=== PATIENT | female | born 1950 | race Caucasian/White ===

== ENCOUNTER 2016-08-30 09:50 | Day surgery (SDC) | payer BC ==
[2016-08-30] MEDS ORDERED: PROPOFOL 10 MG/ML VIAL IV ONE (14:00)
[2016-08-30] MEDS ORDERED: LIDOCAINE 2% MDV (20MG/ML) 20ML VIAL IV ONE ×2 (14:00→15:16)
[2016-08-30] MEDS ORDERED: PHENYLEPHRINE HCL 2.5% OPTH 2ML BTL OP ONE (15:16)
[2016-08-30] MEDS ORDERED: DICLOFENAC SODIUM 2.5 ML DROPS OPTH ONE (15:16)
[2016-08-30] MEDS ORDERED: EPINEPHRINE 1 MG/ML AMPUL SQ ONE (15:16)
[2016-08-30] MEDS ORDERED: TOBRAMYCIN 0.3% OPTH DROP 5 ML BTL OPTH ONE (15:16)
[2016-08-30] MEDS ORDERED: TETRACAINE HCL 0.5% 15 ML OPTH BTL OPTH ONE (15:16)
[2016-08-30] MEDS ORDERED: TROPICAMIDE 1% 15ML BTL OP ONE (15:16)
[2016-08-30] MEDS ORDERED: NEOMYCIN/POLY./DEXAM OPTH OINT OPTH ONE (15:16)
[2016-08-30] MEDS ORDERED: PREDNISOLONE ACETATE 1% OPTH 10ML BOTTLE OPTH ONE (15:16)
--- NOTE | 2016-08-30 15:40 | OP NOTE CHAMES ---
DATE OF PROCEDURE: 08/30/16 PREOPERATIVE DIAGNOSIS: Nuclear sclerotic and cortical cataract, right eye. POSTOPERATIVE DIAGNOSIS: Nuclear sclerotic and cortical cataract, right eye. OPERATION: Phacoemulsification of cataractous lens with implantation of intraocular lens. LENS IMPLANT USED: Schrader Model PCB00 + 21.0 diopters. COMPLICATIONS: None. PROCEDURE IN DETAIL: Following a retrobulbar and facial block, the patient was prepped and draped in the usual fashion for eye surgery. A lid speculum was placed in the right eye after which a 2.4 mm tunnel wound was placed at the temporal limbus and dissected into clear cornea. A paracentesis was placed at 2 oclock hours to the left and right of the initial incision and the chamber deepened with Viscoelastic. The keratome was then used to enter the anterior chamber after which the continuous circular capsulorrhexis was accomplished without difficulty using a bent needle and a Utrata forceps. Hydrodissection and hydrodelineation of the lens was performed after which the nucleus of the lens was removed using the Phaco handpiece in the [id number] technique. The residual cortical material was irrigated and aspirated from the eye after which the bag and chamber were re-examined. The bag was re-inflated with Viscoelastic and the intraocular lens injected into the capsular bag where it centered well. The Viscoelastic was then copiously irrigated and aspirated from the eye after which the temporal tunnel wound and paracentesis were hydrated and the wounds were examined. They were noted to be watertight. The lid speculum was removed from the eye and the eye patched and shielded. The patient was transferred to the recovery room in satisfactory condition and given an appointment to be reexamined in the clinic later today or as directed by Dr. Vinson. Camron Vinson M.D. Date & Time JOB NUMBER: [id number] MTDD
== END 2016-08-30 12:30 | disposition home or self-care (01) ==
LOC: SUR 09:50
PROVIDERS: ATTEND Ophthalmology
DX: H25.11 Age-related nuclear cataract, right eye (principal)
CPT/HCPCS: J0171

== ENCOUNTER 2016-09-27 06:48 | Day surgery (SDC) | payer BC ==
[2016-09-27] MEDS ORDERED: TROPICAMIDE 1% 15ML BTL OP ONE (11:41)
[2016-09-27] MEDS ORDERED: EPINEPHRINE 1 MG/ML AMPUL SQ ONE (11:41)
[2016-09-27] MEDS ORDERED: NEOMYCIN/POLYMYXIN B SULF/HC 10ML BTL OT ONE (11:41)
[2016-09-27] MEDS ORDERED: LIDOCAINE 2% MDV (20MG/ML) 20ML VIAL IV ONE ×2 (11:41→14:00)
[2016-09-27] MEDS ORDERED: PHENYLEPHRINE HCL 2.5% OPTH 2ML BTL OP ONE (11:41)
[2016-09-27] MEDS ORDERED: PREDNISOLONE ACETATE 1% OPTH 10ML BOTTLE OPTH ONE (11:41)
[2016-09-27] MEDS ORDERED: TOBRAMYCIN 0.3% OPTH DROP 5 ML BTL OPTH ONE (11:41)
[2016-09-27] MEDS ORDERED: DICLOFENAC SODIUM 2.5 ML DROPS OPTH ONE (11:41)
[2016-09-27] MEDS ORDERED: PROPOFOL 10 MG/ML VIAL IV ONE (14:00)
--- NOTE | 2016-10-03 14:53 | Operative Note ---
DATE OF PROCEDURE: 09/27/2016 PREOPERATIVE DIAGNOSIS: Nuclear sclerotic cataract, Left eye. POSTOPERATIVE DIAGNOSIS: Nuclear sclerotic cataract, Left eye. OPERATION: Phacoemulsification of cataractous lens with implantation of intraocular lens. LENS IMPLANT USED: Schrader Model PCB00 + 20.5 diopters. COMPLICATIONS: None. PROCEDURE IN DETAIL: Following a retrobulbar and facial block, the patient was prepped and draped in the usual fashion for eye surgery. A lid speculum was placed in the left eye after which a 2.4 mm tunnel wound was placed at the temporal limbus and dissected into clear cornea. A paracentesis was placed at 2 oclock hours to the left and right of the initial incision and the chamber deepened with Viscoelastic. The keratome was then used to enter the anterior chamber after which the continuous circular capsulorrhexis was accomplished without difficulty using a bent needle and a Utrata forceps. Hydrodissection and hydrodelineation of the lens was performed after which the nucleus of the lens was removed using the Phaco handpiece in the [id number] technique. The residual cortical material was irrigated and aspirated from the eye after which the bag and chamber were re-examined. The bag was re-inflated with Viscoelastic and the intraocular lens injected into the capsular bag where it centered well. The Viscoelastic was then copiously irrigated and aspirated from the eye after which the temporal tunnel wound and paracentesis were hydrated and the wounds were examined. They were noted to be watertight. The lid speculum was removed from the eye and the eye patched and shielded. The patient was transferred to the recovery room in satisfactory condition and given an appointment to be reexamined in the clinic later today or as directed by Dr. Vinson. Camron Vinson M.D. Date & Time JOB NUMBER: [id number] MTDD
== END 2016-09-27 09:31 | disposition home or self-care (01) ==
LOC: SUR 06:48
PROVIDERS: ATTEND Ophthalmology
DX: H25.12 Age-related nuclear cataract, left eye (principal); I10 Essential (primary) hypertension; E78.00 Pure hypercholesterolemia, unspecified; E03.9 Hypothyroidism, unspecified
CPT/HCPCS: J0171

== ENCOUNTER 2017-04-11 09:41 | Day surgery (SDC) | payer BC ==
[2017-04-11] MEDS ORDERED: LIDOCAINE 2% MDV (20MG/ML) 20ML VIAL IV ONE (09:42)
[2017-04-11] MEDS ORDERED: PROPOFOL 10 MG/ML VIAL IV ONE (09:42)
--- NOTE | 2017-04-11 14:43 | Operative Note ---
DATE OF SURGERY: 04/11/2017 OPERATION: COLONOSCOPY with cold forceps polypectomy x2. PREOPERATIVE DIAGNOSIS: Colorectal cancer screening, average risk. POSTOPERATIVE DIAGNOSIS: Ascending colon polyp and cecal polyp. ESTIMATED BLOOD LOSS: Minimal. SPECIMENS: Ascending colon polyp, cecal polyp. PREPARATION QUALITY: Good to excellent. COMPLICATIONS: None apparent. PROCEDURE: After informed consent was obtained from the patient, she was placed in the left lateral decubitus position in the endoscopy suite, sedated and monitored by the department of anesthesia. Digital rectal exam was unremarkable. A well-lubricated [id number] colonoscope was inserted into the rectum and advanced through a tortuous and redundant colon to the cecum. Transabdominal pressure was required to intubate the cecal cap. Preparation quality was good to excellent. At the base of the cecum there was a 4 mm sessile polyp removed with a cold forceps. The ascending colon revealed a 4 mm polyp removed with a cold forceps. The remainder of the ascending colon, cecum, transverse colon, descending colon, sigmoid colon, and rectum were otherwise unremarkable. Forward and J-turn views of the rectum and anorectum were unrevealing. The endoscope was straightened, the rectal ampulla deflated, and the endoscope was removed. RECOMMENDATIONS: The patient should resume her medications and diet. She will require repeat exam in 3-5 years pending tissue histology. As always, thank you for allowing me to participate in the healthcare of your patients. CC: Dr. Mirtha SPEAR
== END 2017-04-11 11:26 | disposition home or self-care (01) ==
LOC: HOP 09:41
PROVIDERS: ATTEND Internal Medicine Gastroenterology
DX: Z12.11 Encounter for screening for malignant neoplasm of colon (principal); D12.0 Benign neoplasm of cecum; D12.2 Benign neoplasm of ascending colon; I10 Essential (primary) hypertension; E78.00 Pure hypercholesterolemia, unspecified

== ENCOUNTER 2018-10-15 05:59 | Day surgery (SDC) | payer BC ==
[2018-10-15] MEDS ORDERED: CEFAZOLIN 2 Gram 2 GM/50 ML BAG IVPB ONE (06:00)
[2018-10-15] MEDS ORDERED: ACETAMINOPHEN 1,000 MG/100 ML BTL IVPB ONE (06:00)
[2018-10-15] MEDS ORDERED: ONDANSETRON HCL IV 4 MG/2 ML VIAL IVP ONE (06:00)
[2018-10-15] MEDS ORDERED: PROPOFOL 10 MG/ML VIAL IV ONE (06:00)
[2018-10-15] MEDS ORDERED: MIDAZOLAM HCL 2MG/2ML VIAL IV ONE (06:00)
[2018-10-15] MEDS ORDERED: LIDOCAINE 2% MDV (20MG/ML) 20ML VIAL IV ONE (06:00)
[2018-10-15] MEDS ORDERED: DEXAMETHASONE 4 MG/ML 1ML VIAL IVP ONE (06:00)
[2018-10-15] MEDS ORDERED: SEVOFLURANE 250 ML INH ONE (06:00)
[2018-10-15] MEDS ORDERED: FENTANYL PF 100MCG/2ML VIAL IV ONE (06:00)
[2018-10-15] MEDS ORDERED: RINGERS SOLUTION,LACTATED 1,000 ML IV ONE (06:30)
[2018-10-15] MEDS ORDERED: IBUPROFEN 400 MG TABLET PO ONE (09:09)
--- NOTE | 2018-10-16 08:51 | Operative Note ---
DATE OF SURGERY: 10/15/2018 SURGEON: Siddhartha Raya DO PREOPERATIVE DIAGNOSIS: Lipoma of the left hip. POSTOPERATIVE DIAGNOSIS: Lipoma of the left hip. OPERATION: Excision of lipoma left hip (8 cm). DESCRIPTION OF PROCEDURE: This 68-year-old female was taken to the operating room and placed in the supine position on the operating room table. General anesthesia was induced. She was placed in the right lateral decubitus position, bolstered perpendicular to the floor. The left hip was then prepped with Hibiclens and draped in the usual sterile fashion. A longitudinal 8 cm incision was made below the iliac crest and above the greater trochanter. Dissection was carried down through the skin and subcutaneous tissue. Hemostasis was obtained with the electrocautery. Blunt and sharp dissection was carried down to the area where the fibrous part of this lesion appeared to evaporate and then it appears normal fat, but there was a thickening fibrotic portion to this lesion which was excised, the mass being approximately 7-8 cm by 6 cm in greatest dimension. The wound was then copiously irrigated with lactated Ringer's solution. Again, a diligent search for any bleeders was undertaken and none were found. The wound was dry, and we closed the subcutaneous tissue the best we could with 0 Vicryl. The skin closed with running 4-0 nylon suture. Sterile dressings were applied and the patient was taken to the recovery room in satisfactory condition. GROSS PATHOLOGY: This patient demonstrated a lipoma with fibrous interdigitation of the fatty body of the lesion. It was about 8 x 6 cm. No sign of malignant pathology was identified. CC: DO RAINER Manning
== END 2018-10-15 09:23 | disposition home or self-care (01) ==
LOC: SUR 05:59
PROVIDERS: ATTEND Orthopaedic Surgery
DX: D17.24 Benign lipomatous neoplasm of skin and subcutaneous tissue of left leg (principal); I10 Essential (primary) hypertension; E78.00 Pure hypercholesterolemia, unspecified; J45.909 Unspecified asthma, uncomplicated
CPT/HCPCS: 11406; 12034; 00400; J2405; J3010; J0690; J7120